=== PATIENT | female | born 1995 | race Caucasian/White ===

== ENCOUNTER 2017-07-26 10:36 | Emergency (ER) | payer MEDICAID ==
[~2017-07-26] VITALS: Ht 162.6 cm; Wt 77.3 kg
[2017-07-26 10:41] VITALS: Ht 162.6 cm; Wt 77.3 kg
[2017-07-26 12:24] VITALS: BP 109/60
== END 2017-07-26 12:24 | disposition home or self-care (01) ==
LOC: ED 10:36
DX: R07.89 Other chest pain (principal); R00.0 Tachycardia, unspecified
CPT/HCPCS: J1885; J7030; Q0092